=== PATIENT | female | born 1990 | race African-American/Black ===

== ENCOUNTER 2017-09-09 11:25 | Emergency (ER) | payer SELFPAY ==
[2017-09-09 11:46] LABS: URINE HCG POC HCG NEGATIVE (Negative)
[2017-09-09 12:43] LABS: ADD MAN DIFF? NO
[2017-09-09 12:54] LABS: ANION GAP 8 (6-14); BLOOD UREA NITROGEN 9 mg/dL (7-20); BUN/CREATININE RATIO 11 (6-20); CALCIUM 8.2 mg/dL (8.5-10.1); CARBON DIOXIDE 25 mmol/L (21-32); CHLORIDE 105 mmol/L (98-107); CREATININE 0.8 mg/dL (0.6-1.0); GFR 102.6; GLUCOSE 89 mg/dL (70-99); SODIUM 138 mmol/L (136-145)
[2017-09-09 12:55] LABS: POTASSIUM 4.7 mmol/L (3.5-5.1)
[2017-09-09 12:58] LABS: NEG OBC SER NEG; POS OBC SER POS; PREG TEST PT QUAL NEGATIVE (NEG)
[2017-09-09 13:00] LABS: ALBUMIN 3.4 g/dL (3.4-5.0); ALK PHOS 81 U/L (46-116); ALT (SGPT) 18 U/L (14-59); AST (SGOT) 20 U/L (15-37); BASO % 1 % (0-3); EOS # 0.3 x10^3/uL (0.0-0.7); EOS % 6 % (0-3); HEMATOCRIT 37.9 % (36.0-47.0); HEMOGLOBIN 12.8 g/dL (12.0-15.5); LIPASE 169 U/L (73-393); LYMPH % 43 % (24-48); MEAN CORPUSCULAR HEMOGLOBIN 31 pg (25-35); MEAN CORPUSCULAR HGB CONC 34 g/dL (31-37); MEAN CORPUSCULAR VOLUME 92 fL (79-100); MONO # 0.5 x10^3/uL (0.0-1.1); MONO % 11 % (0-9); NEUT # 1.9 x10^3uL (1.8-7.7); NEUT % 40 % (31-73); PLATELET COUNT 307 x10^3/uL (140-400); RED BLOOD COUNT 4.13 x10^6/uL (3.50-5.40); RED CELL DISTRIBUTION WIDTH 15.4 % (11.5-14.5); TOTAL BILIRUBIN 0.3 mg/dL (0.2-1.0); TOTAL PROTEIN 6.7 g/dL (6.4-8.2); WHITE BLOOD COUNT 4.8 x10^3/uL (4.0-11.0)
[2017-09-09] MEDS: ONDANSETRON PF 4 MG/2 ML VIAL. IV (13:10)
[2017-09-09] MEDS: IV NORMAL SALINE 1000ML BAG 1,000 ML IV (13:10)
[2017-09-09] MEDS: PANTOPRAZOLE IV PUSH 40 MG VIAL. IVP (13:10)
[2017-09-09 13:12] LABS: BILIRUBIN,URINE NEGATIVE (NEG); CLARITY,URINE CLEAR; COLOR,URINE YELLOW; GLUCOSE,URINE NEGATIVE (NEG); NITRITE,URINE NEGATIVE (NEG); PROTEIN,URINE NEGATIVE (NEG-TRACE); UROBILINOGEN,URINE 0.2 mg/dL (0.2 mg/dL)
[2017-09-09] MEDS ORDERED: CONTRAST GIVEN. MC (13:15)
[2017-09-09 13:25] LABS: BACTERIA,URINE FEW /HPF (0-FEW); RBC,URINE 0 /HPF (0-2); SQUAMOUS EPITHELIAL CELL,UR MANY /LPF
[2017-09-09] MEDS: IOHEXOL 300 MG/ML 100ML VIAL. IV (13:31)
== END 2017-09-09 14:50 | disposition home or self-care (01) ==
LOC: ER 11:25
DX: N83.201 Unspecified ovarian cyst, right side (principal)
CPT/HCPCS: 36415; 74177; 80053; 81001; 81025; 83690; 84703; 85025; 87086; 96361; 96374; 96375; 99285-25; C9113; J2405; J7030; Q9967

== ENCOUNTER 2017-11-23 19:54 | Emergency (ER) | payer SELFPAY ==
[~2017-11-23] VITALS: Ht 167.6 cm; Wt 58.1 kg
[2017-11-23 20:06] VITALS: BP 112/78
[2017-11-23] MEDS ORDERED: AZITHROMYCIN 250 MG TABLET. PO ONE (20:15)
[2017-11-23] MEDS ORDERED: cefTRIAXone IM 250 MG VIAL IM ONE (20:15)
[2017-11-23 20:33] LABS: BILIRUBIN,URINE NEGATIVE (NEG); CLARITY,URINE CLEAR; COLOR,URINE YELLOW; NITRITE,URINE NEGATIVE (NEG); PROTEIN,URINE NEGATIVE (NEG-TRACE)
[2017-11-23 20:42] LABS: BACTERIA,URINE MODERATE /HPF (0-FEW); RBC,URINE OCC /HPF (0-2); SQUAMOUS EPITHELIAL CELL,UR MANY /LPF; TRICHOMONAS,URINE PRESENT
[2017-11-23 20:43] LABS: U PREG PATIENT NEGATIVE (NEG)
--- NOTE | 2017-11-23 20:43 | PHYS DOC ---
Past Medical History Past Medical History: No Pertinent History Past Surgical History: Tubal ligation Alcohol Use: Occasionally Drug Use: None Adult General Chief Complaint Chief Complaint: SEXUALLY TRANSMITTED DISEASE HPI HPI Patient is a 27 year old F who presents with concerns for an STD. She states she was contacted by her sexual partner and informed that he has both Gonorrhea and Chlamydia. She has noticed some vaginal discharge so came to get treated. She is currently on her menstrual cycle and we discussed doing a pelvic exam and having swabs but she would like to just be treated today. We discussed that we would cover for Gonorrhea and Chlamydia and would prescribe Rx for Trichomonas. If she still has discharge or any concerns after 7-10 days, then she should have a pelvic exam with swabs at that time. We also are not checking for HIV or Syphilis today and I have recommended her doctor or the health department if she would like those tests performed. Review of Systems Review of Systems Constitutional: Denies fever or chills Respiratory: Denies cough or shortness of breath Cardiovascular: Denies chest pain. GI: Denies abdominal pain, nausea, vomiting, bloody stools or diarrhea : Denies dysuria. Reports vaginal discharge. Musculoskeletal: Denies back pain or joint pain Integument: Denies rash or skin lesions Neurologic: Denies headache, focal weakness or sensory changes All other systems were reviewed and found to be within normal limits, except as documented in this note. Current Medications Current Medications Current Medications Medications (Trade) Dose Ordered Sig/Rod Start Time Stop Time Status Last Admin Dose Admin Azithromycin (Zithromax) 1,000 mg 1X ONCE 11/23/17 20:15 11/23/17 20:16 DC 11/23/17 20:32 1,000 MG Ceftriaxone Sodium (Rocephin Im) 250 mg 1X ONCE 11/23/17 20:15 11/23/17 20:16 DC 11/23/17 20:32 250 MG Allergies Allergies Allergies Coded Allergies Type Severity Reaction Last Updated Verified No Known Drug Allergies 07/26/13 No Physical Exam Physical Exam Constitutional: Well developed, well nourished, no acute distress, non-toxic appearance. Neck: Normal range of motion, no tenderness, supple, no stridor. Cardiovascular:Heart rate regular rhythm, no murmur Lungs & Thorax: Bilateral breath sounds clear to auscultation Abdomen: Bowel sounds normal, soft, no tenderness, no masses, no pulsatile masses. : Pt declined. Skin: Warm, dry, no erythema, no rash. Back: No tenderness, no CVA tenderness. Extremities: No tenderness, no cyanosis, no clubbing, ROM intact, no edema. Neurologic: Alert and oriented X 3, normal motor function, normal sensory function, no focal deficits noted. Psychologic: Affect normal, judgement normal, mood normal. Current Patient Data Vital Signs Vital Signs Date Time Temp Pulse Resp B/P (MAP) Pulse Ox O2 Delivery O2 Flow Rate FiO2 11/23/17 20:06 98.4 78 18 112/78 (89) 99 Room Air 98.4 Lab Values Laboratory Tests Test 11/23/17 20:21 11/23/17 20:26 Urine Collection Type Unknown Urine Color Yellow Urine Clarity Clear Urine pH 7.0 Urine Specific [place] 1.020 Urine Protein Negative mg/dL (NEG-TRACE) Urine Glucose (UA) Negative mg/dL (NEG) Urine Ketones (Stick) Negative mg/dL (NEG) Urine Blood Large (NEG) Urine Nitrite Negative (NEG) Urine Bilirubin Negative (NEG) Urine Urobilinogen Dipstick 1.0 mg/dL (0.2 mg/dL) Urine Leukocyte Esterase Moderate (NEG) Urine RBC Occ /HPF (0-2) Urine WBC 5-10 /HPF (0-4) Urine Squamous Epithelial Cells Many /LPF Urine Bacteria Moderate /HPF (0-FEW) Urine Mucus Marked /LPF Urine Trichomonas Present Urine Test Negative (NEG) POC Urine HCG, Qualitative Hcg negative (Negative) EKG EKG [] Radiology/Procedures Radiology/Procedures [] Course & Med Decision Making Course & Med Decision Making Pertinent Labs and Imaging studies reviewed. (See chart for details) Pt has had prior BTL but we did check UA and HCG. HCG was negative. UA shows bacteria, possibly from the known STD exposure, but will cover with abx for potential UTI as well. Dragon Disclaimer Dragon Disclaimer This electronic medical record was generated, in whole or in part, using a voice recognition dictation system. Departure Departure Impression: Primary Impression: STD (female) Additional Impression: UTI (urinary tract infection) Disposition: HOME, SELF-CARE Condition: STABLE Referrals: NO PCP (PCP) SCOTTY LOVE MD Patient Instructions: Sexually Transmitted Disease, Ultr-ah-Btlo Additional Instructions: Rest, push fluids, abstain from sex for 7-10 days. If symptoms persist, you will need further testing. Scripts Cephalexin (KEFLEX) 500 Mg Capsule 1 CAP PO TID, #21 CAP Prov: KIMBERLY ORTIZ 11/23/17 Metronidazole (FLAGYL) 500 Mg Tablet 1 TAB PO BID, #14 TAB Prov: KIMBERLY ORTIZ 11/23/17 Problem Qualifiers KIMBERLY ORTIZ Nov 23, 2017 20:43
[2017-11-23] MEDS ORDERED: CEPH-264 PO (20:49)
[2017-11-23] MEDS ORDERED: METR500T PO (20:49)
== END 2017-11-23 21:02 | disposition home or self-care (01) ==
LOC: ER 19:54
DX: N39.0 Urinary tract infection, site not specified (principal); A64 Unspecified sexually transmitted disease; Z98.51 Tubal ligation status
CPT/HCPCS: 81001; 81025; 96372; 99284; J0696; Q0144; 87086

== ENCOUNTER 2018-09-16 14:17 | Emergency (ER) | payer SELFPAY ==
[~2018-09-16] VITALS: Ht 165.1 cm; Wt 74.8 kg
[~2018-09-16 14:17] MED LIST: CEPH-264 PO; METR500T PO
--- NOTE | 2018-09-16 16:00 | PHYS DOC ---
Past Medical History Past Medical History: No Pertinent History Past Surgical History: Tubal ligation Alcohol Use: Occasionally Drug Use: None Adult General Chief Complaint Chief Complaint: SEXUALLY TRANSMITTED DISEASE HPI HPI Patient is a 28 year old Female who presents with bilateral lower back pain times months that is worse when she gets up in the morning. She states it is achy and stiff. Patient states she's also had white thick vaginal discharge for the last 2 weeks but it does not appear older. Patient states she is also having bilateral lower abdominal pain that it off and on times months. Patient states she has vaginal itching. Her last menstrual period was August 15. Patient states she takes no medications has no surgery. Review of Systems Review of Systems Constitutional: Denies fever or chills [] Eyes: Denies change in visual acuity, redness, or eye pain [] HENT: Denies nasal congestion or sore throat [] Respiratory: Denies cough or shortness of breath [] Cardiovascular: No additional information not addressed in HPI [] GI: Bilateral lower abdominal pain, denies nausea, vomiting, bloody stools or diarrhea [] : Denies dysuria or hematuria [] Musculoskeletal: Denies back pain or joint pain [] Integument: Denies rash or skin lesions [] Neurologic: Denies headache, focal weakness or sensory changes [] Endocrine: Denies polyuria or polydipsia [] All other systems were reviewed and found to be within normal limits, except as documented in this note. Current Medications Current Medications Current Medications Medications (Trade) Dose Ordered Sig/Rod Start Time Stop Time Status Last Admin Dose Admin Acetaminophen/ Hydrocodone Bitart (Lortab 5/325) 1 tab 1X ONCE 09/16/18 16:30 09/16/18 16:31 DC 09/16/18 16:33 1 TAB Azithromycin (Zithromax) 1,000 mg 1X ONCE 09/16/18 15:45 09/16/18 15:46 DC 09/16/18 16:50 1,000 MG Ceftriaxone Sodium (Rocephin Im) 250 mg 1X ONCE 09/16/18 15:45 09/16/18 15:46 DC 09/16/18 16:50 250 MG Ondansetron HCl (Zofran Odt) 4 mg 1X ONCE 09/16/18 15:45 09/16/18 15:46 DC 09/16/18 16:32 4 MG Allergies Allergies Allergies Coded Allergies Type Severity Reaction Last Updated Verified No Known Drug Allergies 07/26/13 No Physical Exam Physical Exam Constitutional: Well developed, well nourished, no acute distress, non-toxic appearance. [] HENT: Normocephalic, atraumatic, bilateral external ears normal, oropharynx moist, no oral exudates, nose normal. [] Eyes: PERRLA, EOMI, conjunctiva normal, no discharge. [] Neck: Normal range of motion, no tenderness, supple, no stridor. [] Cardiovascular:Heart rate regular rhythm, no murmur [] Lungs & Thorax: Bilateral breath sounds clear to auscultation [] Abdomen: Bowel sounds normal, soft, slight mid and left lower tenderness, no masses, no pulsatile masses. [] Skin: Warm, dry, no erythema, no rash. [] Back: No tenderness, no CVA tenderness. [] Extremities: No tenderness, no cyanosis, no clubbing, ROM intact, no edema. [] Neurologic: Alert and oriented X 3, normal motor function, normal sensory function, no focal deficits noted. [] Psychologic: Affect normal, judgement normal, mood normal. [] Current Patient Data Vital Signs Vital Signs Date Time Temp Pulse Resp B/P (MAP) Pulse Ox O2 Delivery O2 Flow Rate FiO2 09/16/18 16:33 16 98 Room Air Lab Values Laboratory Tests Test 09/16/18 16:30 Urine Collection Type Unknown Urine Color Yellow Urine Clarity Clear Urine pH 6.5 Urine Specific [place] 1.020 Urine Protein Negative mg/dL (NEG-TRACE) Urine Glucose (UA) Negative mg/dL (NEG) Urine Ketones (Stick) Negative mg/dL (NEG) Urine Blood Negative (NEG) Urine Nitrite Negative (NEG) Urine Bilirubin Negative (NEG) Urine Urobilinogen Dipstick 0.2 mg/dL (0.2 mg/dL) Urine Leukocyte Esterase Negative (NEG) Urine RBC Occ /HPF (0-2) Urine WBC 1-4 /HPF (0-4) Urine Squamous Epithelial Cells Few /LPF Urine Bacteria 0 /HPF (0-FEW) Microbiology 09/16/18 Wet Prep - Final, Complete EKG EKG [] Radiology/Procedures Radiology/Procedures [] Impressions: [facility] [address] [place] [address] IMAGING REPORT Signed PATIENT: VANNA VAZQUEZ ACCOUNT: [id number] : 1990 LOCATION: ER AGE: 28 SEX: F EXAM STATUS: REG ER ORD. PHYSICIAN: TERE COOPER APRN REASON: RIGHT AND LEFT LOWER ABD PAIN PROCEDURE: PELVIS W/TV Examination: Ultrasound pelvis HISTORY: History of lower abdominal pain COMPARISON: None available FINDINGS: The uterus measures 10.6 x 6.1 x 4.6 cm. Endometrium measures 1.2 cm in thickness. The right ovary measures 3.7 x 1.8 x 1.9 cm. The left ovary measures 3.8 x 4.2 x 2.8 cm. Blood flow identified in the right and left ovaries. There is a small 2.9 cm heterogeneous echogenicity identified in the left ovary probably a hemorrhagic cyst. Small amount of fluid identified adjacent to the left ovary. IMPRESSION: 1. 2.9 cm heterogeneous echogenicity identified in the left ovary probably hemorrhagic cyst. Close interval follow-up examination is recommended to document resolution. 2. Small free fluid adjacent to the left ovary. 3. Mild thickened endometrium probably phase of menstrual cycle. Electronically signed by: Zachariah Zamora MD (09/16/2018 4:32 PM) [id number] DICTATED and SIGNED BY: ZACHARIAH ZAMORA MD DATE: 09/16/18 1632 Course & Med Decision Making Course & Med Decision Making Patient is a 28 year old Female who presents with bilateral lower back pain times months that is worse when she gets up in the morning. She states it is achy and stiff. Patient states she's also had white thick vaginal discharge for the last 2 weeks but it does not appear older. Patient states she is also having bilateral lower abdominal pain that it off and on times months. Patient states she has vaginal itching. Her last menstrual period was August 15. Patient states she takes no medications has no surgery. She states she would like to be checked and treated for sexual transmitted diseases today. Abdomen is soft and only slightly tender with palpation to mid and left lower abdomen. Patient denies nausea, vomiting, fever, chest pain, dysuria, shortness of breath. No CVA tenderness. There is no tenderness to her lower back and she has no spinal tenderness. Patient states her lower back pain does not radiate anywhere. Patient currently rates her pain a 7 out of 10. Lungs are clear to auscultation all lobes. Vital signs are within normal limits. Skin is pink warm and dry. Mucous membranes moist. Speaks in full clear sentences. She is alert and oriented. Ambulatory with a steady gait. No extremity swelling. No calf tenderness. Patient is treated with Rocephin and azithromycin. Ultrasound shows: 1. 2.9 cm heterogeneous echogenicity identified in the left ovary probably hemorrhagic cyst. Close interval follow-up examination is recommended to document resolution. 2. Small free fluid adjacent to the left ovary. 3. Mild thickened endometrium probably phase of menstrual cycle. Pelvic Exam: Textile Artist present Abdomen: Nontender External Genitalia: Normal Skin Speculum: Normal vaginal mucosa, normal cervical discharge Bimanual: No adnexal masses or tenderness, No CMT Patient is referred to gynecology for further workup as soon as possible. Dragon Disclaimer Dragon Disclaimer This electronic medical record was generated, in whole or in part, using a voice recognition dictation system. Departure Departure Impression: Primary Impression: Hemorrhagic cyst of left ovary Disposition: HOME, SELF-CARE Condition: STABLE Referrals: NO PCP (PCP) ESTELLA FRANKS MD Patient Instructions: Ovarian Cyst Additional Instructions: Follow-up with cardiology as soon as possible. Take ibuprofen and use a heating pad for pain. TERE COOPER APRN Sep 16, 2018 16:00
[2018-09-16] MEDS: ONDANSETRON ODT 4 MG TAB.RAPDIS. PO ONE (16:32)
[2018-09-16] MEDS: HYDROcodone/APAP 5/325MG 1 TAB TABLET PO ONE (16:33)
--- NOTE | 2018-09-16 16:35 | RAD ---
Examination: Ultrasound pelvis HISTORY: History of lower abdominal pain COMPARISON: None available FINDINGS: The uterus measures 10.6 x 6.1 x 4.6 cm. Endometrium measures 1.2 cm in thickness. The right ovary measures 3.7 x 1.8 x 1.9 cm. The left ovary measures 3.8 x 4.2 x 2.8 cm. Blood flow identified in the right and left ovaries. There is a small 2.9 cm heterogeneous echogenicity identified in the left ovary probably a hemorrhagic cyst. Small amount of fluid identified adjacent to the left ovary. IMPRESSION: 1. 2.9 cm heterogeneous echogenicity identified in the left ovary probably hemorrhagic cyst. Close interval follow-up examination is recommended to document resolution. 2. Small free fluid adjacent to the left ovary. 3. Mild thickened endometrium probably phase of menstrual cycle. Electronically signed by: Zachariah Zamora MD (09/16/2018 4:32 PM) [facility]
[2018-09-16 16:42] LABS: BILIRUBIN,URINE NEGATIVE (NEG); CLARITY,URINE CLEAR; COLOR,URINE YELLOW; NITRITE,URINE NEGATIVE (NEG); PH,URINE 6.5; PROTEIN,URINE NEGATIVE (NEG-TRACE); UROBILINOGEN,URINE 0.2 mg/dL (0.2 mg/dL)
[2018-09-16] MEDS: AZITHROMYCIN 250 MG TABLET. PO ONE (16:50)
[2018-09-16] MEDS: cefTRIAXone IM 250 MG VIAL IM ONE (16:50)
[2018-09-16 17:00] LABS: BACTERIA,URINE 0 /HPF (0-FEW); RBC,URINE OCC /HPF (0-2); SQUAMOUS EPITHELIAL CELL,UR FEW /LPF
[2018-09-16 17:35] VITALS: BP 122/86
[2018-09-17 17:09] LABS: GC PROBE Negative (Negative)
== END 2018-09-16 17:37 | disposition home or self-care (01) ==
LOC: ER 14:17
DX: N83.202 Unspecified ovarian cyst, left side (principal); N89.8 Other specified noninflammatory disorders of vagina; M54.5 Low back pain; Z98.51 Tubal ligation status
CPT/HCPCS: 76830; 76856; 81001; 87491; 87591; 96372; 99285; J0696; Q0111; Q0144; Q0162

== ENCOUNTER 2019-02-08 06:40 | Emergency (ER) | payer BC ==
[~2019-02-08] VITALS: Ht 165.1 cm; Wt 74.8 kg
[2019-02-08] MEDS: HYDROcodone/APAP 5/325MG 1 TAB TABLET PO ONE (07:28)
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
[2019-02-08 08:30] VITALS: BP 131/86
== END 2019-02-08 08:44 | disposition left against medical advice (07) ==
LOC: ER 06:40
DX: M54.5 Low back pain (principal); M54.6 Pain in thoracic spine; G89.11 Acute pain due to trauma; Z91.19 Patient's noncompliance with other medical treatment and regimen; V48.5XXA Car driver injured in noncollision transport accident in traffic accident, initial encounter; Y93.I9 Activity, other involving external motion; Y92.488 Other paved roadways as the place of occurrence of the external cause; Y99.8 Other external cause status
CPT/HCPCS: 72072; 72100; 99284

== ENCOUNTER 2019-09-28 13:33 | Emergency (ER) | payer BC ==
[~2019-09-28] VITALS: Ht 165.1 cm; Wt 76.0 kg
--- NOTE | 2019-09-28 14:36 | PHYS DOC ---
Past Medical History Past Medical History: No Pertinent History Past Surgical History: Tubal ligation Smoking Status: Never Smoker Alcohol Use: None Drug Use: None General Adult EDM: Chief Complaint: BACK PAIN - NO INJURY HPI: HPI: Patient is a 29 year old female who presents with 1 day history of right flank pain pain is severe at times waxing and waning and stabbing. Patient states nothing makes pain worse or better. Pain comes in waves. Patient has nausea but no vomiting. Patient also has noted hematuria and dysuria. Patient denies any fevers, cough, vomiting or diarrhea. Patient does have some mild shortness of breath due to the pain. Review of Systems: Review of Systems: Constitutional: Denies fever or chills. [] Eyes: Denies change in visual acuity. [] HENT: Denies nasal congestion or sore throat. [] Respiratory: Denies cough but complains of some mild shortness of breath due to pain Cardiovascular: Denies chest pain or edema. [] GI: Complains of right-sided abdominal pain that radiated from the back. Complains of nausea but no vomiting or diarrhea : Complains of hematuria and dysuria Musculoskeletal: Complains of right flank pain Integument: Denies rash. [] Neurologic: Denies headache, focal weakness or sensory changes. [] Endocrine: Denies polyuria or polydipsia. [] Lymphatic: Denies swollen glands. [] Psychiatric: Denies depression or anxiety. [] Heart Score: Risk Factors: Risk Factors: DM, Current or recent (<one month) smoker, HTN, HLP, family history of CAD, obesity. Risk Scores: Score 0 - 3: 2.5% MACE over next 6 weeks - Discharge Home Score 4 - 6: 20.3% MACE over next 6 weeks - Admit for Clinical Observation Score 7 - 10: 72.7% MACE over next 6 weeks - Early Invasive Strategies Allergies: Allergies: Allergies Coded Allergies Type Severity Reaction Last Updated Verified No Known Drug Allergies 07/26/13 No Physical Exam: PE: Constitutional: Well developed, well nourished, appears in pain HENT: No trismus, external ears normal Eyes: Conjunctiva clear, EOMI Neck: Normal range of motion, no tenderness, supple, no stridor. Cardiovascular: Regular rate/rhythm, peripheral pulse intact, OPTOMETRY DOCTOR intact Lungs & Thorax: No respiratory distress Abdomen: No distension, nontender, no guarding no rebound no pulsatile masses Skin: Diffuse: Intact, no rash Back: Full ROM no CVA tenderness Extremities: Normal inspection, no edema Neurologic: Alert and oriented X 3, normal motor function, , no focal deficits noted. Psychologic: Affect normal, judgement normal, mood normal. Current Patient Data: Labs: Laboratory Tests Test 09/28/19 14:30 09/28/19 14:45 09/28/19 14:46 Urine Collection Type Void Urine Color Yellow Urine Clarity Cloudy Urine pH 6.5 Urine Specific [place] 1.015 Urine Protein >=300 mg/dL Urine Glucose (UA) Negative mg/dL Urine Ketones (Stick) Negative mg/dL Urine Blood Large Urine Nitrite Positive Urine Bilirubin Negative Urine Urobilinogen Dipstick 0.2 mg/dL Urine Leukocyte Esterase Large Urine RBC Tntc /HPF Urine WBC Tntc /HPF Urine Squamous Epithelial Cells Few /LPF Urine Bacteria Many /HPF Urine Mucus Slight /LPF White Blood Count 12.9 x10^3/uL Red Blood Count 4.14 x10^6/uL Hemoglobin 13.1 g/dL Hematocrit 38.1 % Mean Corpuscular Volume 92 fL Mean Corpuscular Hemoglobin 32 pg Mean Corpuscular Hemoglobin Concent 34 g/dL Red Cell Distribution Width 14.4 % Platelet Count 323 x10^3/uL Neutrophils (%) (Auto) 68 % Lymphocytes (%) (Auto) 22 % Monocytes (%) (Auto) 8 % Eosinophils (%) (Auto) 2 % Basophils (%) (Auto) 0 % Neutrophils # (Auto) 8.8 x10^3/uL Lymphocytes # (Auto) 2.8 x10^3/uL Monocytes # (Auto) 1.0 x10^3/uL Eosinophils # (Auto) 0.2 x10^3/uL Basophils # (Auto) 0.1 x10^3/uL Sodium Level 137 mmol/L Potassium Level 3.5 mmol/L Chloride Level 101 mmol/L Carbon Dioxide Level 29 mmol/L Anion Gap 7 Blood Urea Nitrogen 7 mg/dL Creatinine 1.1 mg/dL Estimated GFR (Cockcroft-Gault) 70.1 BUN/Creatinine Ratio 6 Glucose Level 103 mg/dL Calcium Level 8.8 mg/dL Total Bilirubin 0.4 mg/dL Aspartate Amino Transf (AST/SGOT) 10 U/L Alanine Aminotransferase (ALT/SGPT) 15 U/L Alkaline Phosphatase 84 U/L Total Protein 7.7 g/dL Albumin 3.7 g/dL Albumin/Globulin Ratio 0.9 Lipase 56 U/L Bedside Urine HCG, Qualitative Hcg negative Current Medications Medications (Trade) Dose Ordered Sig/Rod Route PRN Reason Start Time Stop Time Status Last Admin Dose Admin Sodium Chloride 1,000 ml @ 1,000 mls/hr Q1H IV 09/28/19 15:00 09/28/19 15:59 DC 09/28/19 14:58 Ondansetron HCl (Zofran) 4 mg 1X ONCE IVP 09/28/19 15:00 09/28/19 15:01 DC 09/28/19 14:57 Ketorolac Tromethamine (Toradol 15mg Vial) 15 mg 1X ONCE IVP 09/28/19 15:00 09/28/19 15:01 DC 09/28/19 14:58 Hydromorphone HCl (Dilaudid) 1 mg 1X ONCE IV 09/28/19 15:15 09/28/19 15:16 DC 09/28/19 15:21 Ceftriaxone Sodium (Rocephin) 1 gm 1X ONCE IVP 09/28/19 15:30 09/28/19 15:33 DC 09/28/19 15:58 Vital Signs: Vital Signs Date Time Temp Pulse Resp B/P (MAP) Pulse Ox O2 Delivery O2 Flow Rate FiO2 09/28/19 17:55 65 16 120/74 (89) 99 Room Air 09/28/19 16:55 68 16 128/72 (90) 99 Room Air 09/28/19 14:30 98.6 103 20 162/82 (108) 98 Room Air 98.6 EKG: EKG: [] Radiology/Procedures: Radiology/Procedures: [][facility] [address] [place], [place] [id number] IMAGING REPORT Signed PATIENT: VANNA VAZQUEZ ACCOUNT: [id number] : 1990 LOCATION: ER AGE: 29 SEX: F EXAM STATUS: REG ER ORD. PHYSICIAN: INDRA ALICIA MD REASON: r flank pain PROCEDURE: CT ABDOMEN PELVIS WO CONTRAST CT ABDOMEN PELVIS WO CONTRAST History: Reason: r flank pain / Spl. Instructions: / History: Technique: Noncontrast examination of the abdomen and pelvis. Coronal and sagittal reconstructions were performed. Exposure: One or more of the following individualized dose reduction techniques were utilized for this examination: 1. Automated exposure control 2. Adjustment of the mA and/or kV according to patient size 3. Use of iterative reconstruction technique. Comparison: September 09, 2017 Findings: Lower chest: No consolidation or pleural effusion. Abdomen and pelvis: The liver, spleen, adrenal glands, pancreas and gallbladder are unremarkable. No biliary ductal dilatation. No renal, ureteral or urinary bladder calculi. Decompressed urinary bladder with wall thickening. Normal appendix. No evidence of bowel obstruction. No pathologic lymphadenopathy. Small pelvic free fluid, likely physiologic. Pelvic contents are otherwise unremarkable. Bones: No pathologic osseous lesions. Impression: 1. No obstructing urolithiasis 2. Urinary bladder wall thickening likely due to nondistention. Recommend correlation for cystitis. 3. Small pelvic free fluid, likely physiologic. Electronically signed by: Levar Beckford DO (09/28/2019 3:18 PM) [facility] DICTATED and SIGNED BY: LEVAR BECKFORD DO DATE: 09/28/19 2001 Course & Med Decision Making: Course & Med Decision Making Pertinent Labs and Imaging studies reviewed. (See chart for details) [] Reassessed at 1700. Patient is clinically improved. Work-up reveals urinary tract infection and kidney infection. No evidence of kidney stone. Patient significantly improved on reassessment. No evidence of severe sepsis or septic shock. Patient given dose of IV antibiotics here and stable for discharge. Return precautions given and told to return if fever vomiting or worsening pain. MIPS measure: hCG checked and negative Dragon Disclaimer: Dragon Disclaimer: This electronic medical record was generated, in whole or in part, using a voice recognition dictation system. Departure Departure Impression: Primary Impression: Urinary tract infection Additional Impression: Right flank pain Disposition: 01 HOME, SELF-CARE Condition: IMPROVED Referrals: NO PCP (PCP) Patient Instructions: Urinary Tract Infection Additional Instructions: EMERGENCY DEPARTMENT GENERAL DISCHARGE INSTRUCTIONS THANK YOU for coming to [facility] Emergency Department (ED) today and trusting us with your care. We trust that you had a positive experience in our Emergency Department. If you wish to speak to the department Management you can contact [facility] chief librarian extension department at . YOUR FOLLOW UP INSTRUCTIONS ARE FOLLOWS: Do you have a private doctor? If you do not have a private doctor, please ask for a resource list of physicians or clinics that may be able to assist you with follow up care. The Emergency Physician has interpreted your x-rays. The X-ray specialist will also review them. If there is a change in the findings you will be notified in 48 hours when at all possible. A lab test or lab culture may have been done, your results will be reviewed and you will be notified if you need a change in treatment. ADDITIONAL INSTRUCTIONS AND INFORMATION Your care today has been supervised by a physician who is specially trained in emergency care. Many problems require more than one evaluation for a complete diagnosis and treatment. We recommend that you schedule your follow up appointment as recommended to ensure complete treatment of your illness or injury. If you are unable to obtain follow up care and continue to have a problem, or if your condition worsens we recommend that you return to the ED. We are not able to safely determine your condition over the phone nor are we able to give sound medical advice over the phone. For these safety reasons, if you call for medical advice we will ask you to come to the ED for further evaluation If you have any questions regarding these discharge instructions please call the ED at . SAFETY INFORMATION In the interest of safety, wellness, and injury prevention; we encourage you to wear your seatbelt, if you smoke; quit smoking, and we encourage your family to use protective helmet for bicycling and other sporting events that present an increased risk for head injury. IF YOUR SYMPTOMS WORSEN OR NEW SYMPTOMS DEVELOP, OR YOU HAVE CONCERNS ABOUT YOUR CONDITION; OR IF YOUR CONDITION WORSENS WHILE YOU ARE WAITING FOR YOUR FOLLOW UP APPOIN TMENT; EITHER CONTACT YOUR PRIMARY CARE DOCTOR, THE PHYSICIAN WHOSE NAME AND NUMBER YOU WERE GIVEN, OR RETURN TO THE ED IMMEDIATELY. Scripts Hydrocodone/Apap 5-325 (NORCO 5-325 TABLET) 1 Each Tablet 1-2 EACH PO PRN Q6HRS PRN for PAIN, #15 as needed for pain Prov: INDRA ALICIA MD 09/28/19 Ondansetron Hcl (ZOFRAN) 4 Mg Tablet 1 TAB PO Q6HRS, #12 TAB Prov: INDRA ALICIA MD 09/28/19 Cephalexin (KEFLEX) 500 Mg Capsule 500 MG PO QID, #40 CAP Prov: INDRA ALICIA MD 09/28/19 Justicifation of Admission Dx: Justifications for Admission: Justification of Admission Dx: N/A INDRA ALICIA MD Sep 28, 2019 14:36
[2019-09-28 14:51] LABS: BILIRUBIN,URINE NEGATIVE (NEG); CLARITY,URINE CLOUDY; COLOR,URINE YELLOW; NITRITE,URINE POSITIVE (NEG); PH,URINE 6.5 (<5.0-8.0); PROTEIN,URINE >=300 mg/dL (NEG-TRACE); UROBILINOGEN,URINE 0.2 mg/dL (0.2 mg/dL)
[2019-09-28] MEDS ORDERED: ONDANSETRON PF 4 MG/2 ML VIAL. IVP ONE (15:00)
[2019-09-28] MEDS ORDERED: KETOROLAC 15 MG/ML VIAL. IVP ONE (15:00)
[2019-09-28] MEDS ORDERED: IV NORMAL SALINE 1000ML BAG 1,000 ML IV SCH (15:00)
[2019-09-28 15:04] LABS: RBC,URINE TNTC /HPF (0-2); WBC,URINE TNTC /HPF (0-4)
[2019-09-28 15:05] LABS: BACTERIA,URINE MANY /HPF (0-FEW); SQUAMOUS EPITHELIAL CELL,UR FEW /LPF
[2019-09-28 15:06] LABS: BASO # 0.1 x10^3/uL (0.0-0.2); BASO % 0 % (0-3); EOS # 0.2 x10^3/uL (0.0-0.7); EOS % 2 % (0-3); HEMATOCRIT 38.1 % (36.0-47.0); HEMOGLOBIN 13.1 g/dL (12.0-15.5); LYMPH # 2.8 x10^3/uL (1.0-4.8); LYMPH % 22 % (24-48); MEAN CORPUSCULAR HEMOGLOBIN 32 pg (25-35); MEAN CORPUSCULAR HGB CONC 34 g/dL (31-37); MEAN CORPUSCULAR VOLUME 92 fL (79-100); MONO % 8 % (0-9); NEUT # 8.8 x10^3/uL (1.8-7.7); NEUT % 68 % (31-73); PLATELET COUNT 323 x10^3/uL (140-400); RED BLOOD COUNT 4.14 x10^6/uL (3.50-5.40); RED CELL DISTRIBUTION WIDTH 14.4 % (11.5-14.5); WHITE BLOOD COUNT 12.9 x10^3/uL (4.0-11.0)
[2019-09-28] MEDS ORDERED: HYDROmorphone 2 MG/ML VIAL IV ONE (15:15)
[2019-09-28 15:18] LABS: CALCIUM 8.8 mg/dL (8.5-10.1); CREATININE 1.1 mg/dL (0.6-1.0); GFR 70.1; POTASSIUM 3.5 mmol/L (3.5-5.1)
--- NOTE | 2019-09-28 15:21 | RAD ---
CT ABDOMEN PELVIS WO CONTRAST History: Reason: r flank pain / Spl. Instructions: / History: Technique: Noncontrast examination of the abdomen and pelvis. Coronal and sagittal reconstructions were performed. Exposure: One or more of the following individualized dose reduction techniques were utilized for this examination: 1. Automated exposure control 2. Adjustment of the mA and/or kV according to patient size 3. Use of iterative reconstruction technique. Comparison: September 09, 2017 Findings: Lower chest: No consolidation or pleural effusion. Abdomen and pelvis: The liver, spleen, adrenal glands, pancreas and gallbladder are unremarkable. No biliary ductal dilatation. No renal, ureteral or urinary bladder calculi. Decompressed urinary bladder with wall thickening. Normal appendix. No evidence of bowel obstruction. No pathologic lymphadenopathy. Small pelvic free fluid, likely physiologic. Pelvic contents are otherwise unremarkable. Bones: No pathologic osseous lesions. Impression: 1. No obstructing urolithiasis 2. Urinary bladder wall thickening likely due to nondistention. Recommend correlation for cystitis. 3. Small pelvic free fluid, likely physiologic. Electronically signed by: Levar Beckford DO (09/28/2019 3:18 PM) [facility]
[2019-09-28 15:24] LABS: ALBUMIN 3.7 g/dL (3.4-5.0); ALBUMIN/GLOBULIN RATIO 0.9 (1.0-1.7); TOTAL BILIRUBIN 0.4 mg/dL (0.2-1.0); TOTAL PROTEIN 7.7 g/dL (6.4-8.2)
[2019-09-28] MEDS ORDERED: cefTRIAXone IV Push 1 GM VIAL. IVP ONE (15:30)
[2019-09-28] MEDS ORDERED: ONDA4TAB7 PO (17:44)
[2019-09-28] MEDS ORDERED: CEPH-264 PO (17:44)
[2019-09-28] MEDS ORDERED: HYDR-3164 PO (17:44)
[2019-09-28 17:55] VITALS: BP 120/74
== END 2019-09-28 18:02 | disposition home or self-care (01) ==
LOC: ER 13:33
DX: N39.0 Urinary tract infection, site not specified (principal); R10.9 Unspecified abdominal pain; R11.0 Nausea; R31.9 Hematuria, unspecified; Z98.51 Tubal ligation status
CPT/HCPCS: 36415; 74176; 80053; 81001; 81025; 83690; 85025; 87086; 96374; 96375; 99284; J0696; J1170; J1885; J2405; J7030

== ENCOUNTER 2020-07-16 19:55 | Emergency (ER) | payer SELFPAY ==
[~2020-07-16] VITALS: Ht 165.1 cm; Wt 77.3 kg
[~2020-07-16 19:55] MED LIST changes: +HYDR-3164 PO; +ONDA4TAB7 PO
[2020-07-16] MEDS ORDERED: DIPH,PERTUSS(ACELL),TET VAC/PF 0.5 ML SYRINGE. VAX IM ONE (21:30)
[2020-07-16] MEDS ORDERED: HYDROcodone/APAP 5/325MG 1 TAB TABLET PO ONE (22:00)
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
[2020-07-16] MEDS ORDERED: CYCL10TA2 PO (22:32)
[2020-07-16] MEDS ORDERED: NAPR-514 PO (22:32)
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
[2020-07-16 22:35] VITALS: BP 118/79
== END 2020-07-16 22:35 | disposition home or self-care (01) ==
LOC: ER 19:55
DX: S00.83XA Contusion of other part of head, initial encounter (principal); S00.511A Abrasion of lip, initial encounter; Z98.51 Tubal ligation status; V43.52XA Car driver injured in collision with other type car in traffic accident, initial encounter; Y93.89 Activity, other specified; Y92.410 Unspecified street and highway as the place of occurrence of the external cause; Y99.8 Other external cause status
CPT/HCPCS: 70486; 81025; 90471; 90715; 99284-25